=== PATIENT | male | born 1995 | race Two or more races ===

== ENCOUNTER 2021-02-23 00:20 | Emergency (ER) | payer MEDICAID ==
[~2021-02-23] VITALS: Ht 170.2 cm; Wt 52.0 kg
[2021-02-23] MEDS ORDERED: CETI10CA11 MT (02:58)
[2021-02-23 03:14] VITALS: BP 122/78
== END 2021-02-23 03:15 | disposition home or self-care (01) ==
LOC: ER 00:20
DX: J30.2 Other seasonal allergic rhinitis (principal)
CPT/HCPCS: 99282